=== PATIENT | female | born 1940 | race Caucasian/White ===

== ENCOUNTER → 2017-07-09 | Outpatient (CLI) | payer MEDICARE ==
[~2017-07-09] MED LIST: ADULT LOW DOSE81 MG PO; AFRIN120 MG PO; ANTARA130 MG PO; ANTARA43 MG PO; ANTIVERT25 MG PO; ASPIRIN325 PO; ATORVASTATIN CA40 MG PO; CARDIZEM CD120 MG PO; CELEXA 20 MG TA20 MG PO; COUMADIN 5 MG TA5 M1 PO; CRESTOR10 MG PO; DECONGESTANT NA15 ML NS; DETROL LA2 MG PO; DIAZEPAM 2MG TAB2 MG PO; DIOVAN HCT 1601 EACH PO; ELIQUIS2.5 MG PO; ESCITALOPRAM OX20 MG PO; FENOFIBRIC ACI135 MG PO; GLIPIZIDE ER5 MG PO; LEXAPRO; LOSARTAN POTASS25 MG PO; MECLIZINE 25 MG25 M1 PO; MELATONIN3 M3 PO; METAMUCIL1 EAC1 PO; NORCO 5-325 TA1 EACH PO; OMEPRAZOLE40 MG PO; OXYBUTYNIN ER 55 M1 PO; PROPAFENONE HC300 MG PO; RYTHMOL SR325 MG PO; RYTHMOL225 MG PO; SEE COMMENTS; See comments; TRANSDERM-SCO1 PATC1 TRANSDERM; VITAMIN D2000 UNIT PO; ZETIA10 MG PO; ZPAK PO; [UNRECOGNIZED DRUG - REMARK]
== END ==
LOC: M.CT 07:57
DX: K76.0 Fatty (change of) liver, not elsewhere classified (principal); N83.8 Other noninflammatory disorders of ovary, fallopian tube and broad ligament

== ENCOUNTER 2017-08-09 08:00 | Outpatient (CLI) | payer MEDICARE ==
[~2017-08-09] VITALS: Ht 157.5 cm; Wt 68.0 kg
[~2017-08-09 08:00] MED LIST changes: -ELIQUIS2.5 MG PO; -METAMUCIL1 EAC1 PO; -NORCO 5-325 TA1 EACH PO
[2017-08-09 09:25] LABS: ABSOLUTE EOSINOPHILS 0.1 thou/uL (0.0-0.7); ABSOLUTE LYMPHOCYTES 1.6 thou/uL (0.8-5.3); ABSOLUTE MONOCYTES 0.3 thou/uL (0.0-1.2); ABSOLUTE NEUTROPHILS 2.8 thou/uL (1.6-8.1); BASOPHILS 0.9 %; HEMATOCRIT 42.2 % (37.0-47.0); HEMOGLOBIN 14.5 gm/dL (12.0-15.0); LYMPHOCYTES 32.5 %; MCHC 34.4 g/dL (28.0-37.0); MCV 93.1 fL (80.0-100.0); MONOCYTES 6.6 %; NUCLEATED RBCS 0 /100WBC; PLATELET COUNT* 228 thou/uL (150-400); RBC 4.53 mil/uL (4.20-5.00); RDW-CV 13.7 % (10.5-14.5); WBC 4.8 thou/uL (4.0-11.0)
[2017-08-09 09:35] LABS: APTT 26.4 Seconds (25.0-31.3); INR 1.1; PROTIME 10.6 Seconds (9.20-11.50)
--- NOTE | 2017-08-09 09:36 | EKG ---
[place] [address] ELECTROCARDIOGRAM REPORT Name: YNES MELGOZA Room: PRE IN 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
[2017-08-09 10:06] LABS: ALBUMIN 3.8 g/dL (3.4-5.0); CALCIUM 9.4 mg/dL (8.5-10.1); CREATININE 1.1 mg/dL (0.6-1.3); POTASSIUM 4.2 mmol/L (3.5-5.1); TOTAL BILIRUBIN 0.6 mg/dL (<0.1-1.0); TOTAL PROTEIN 6.9 g/dL (6.4-8.2)
[2017-08-09 10:39] LABS: ESR (SEDRATE) 2 mm/hr (0-30)
[2017-08-10 04:11] LABS: GLYCOHEMOGLOBIN (HGB A1C) 6.1 % (4.8-5.6)
== END 2017-08-15 11:07 | disposition home or self-care (01) ==
LOC: M.LAB 08:00 → M.PRE 08-20 06:56 → EDSTATUS 08-20 08:06 → M.PRE 08-20 08:55
PROVIDERS: Orthopaedic Surgery
DX: M16.11 Unilateral primary osteoarthritis, right hip (principal)

== ENCOUNTER → 2017-09-05 | Outpatient (CLI) | payer MEDICARE ==
[~2017-09-05] MED LIST changes: +ELIQUIS2.5 MG PO; +METAMUCIL1 EAC1 PO; +NORCO 5-325 TA1 EACH PO
--- NOTE | 2017-09-05 13:30 | 2DMMODE ---
[place] [address] 2 D/M-MODE ECHOCARDIOGRAM Name: YNES MELGOZA Room: [facility]#: [id number] Admission: 09/05/17 Attend Phys: Keily Marshall, Discharge: Date of : 42 Date of Service: 09/05/17 1330 Report #: [id number] THIS REPORT FOR: //name// APPROVED REPORT Study performed: 09/05/2017 08:08:19 EXAM: Comprehensive 2D, Doppler, and color-flow Echocardiogram Patient Location: Out-Patient Status: routine BSA: 1.68 HR: 66 bpm BP: 132/80 mmHg Other Information Study Quality: Good Indications Pre-Op Atrial Fibrillation 2D Dimensions LVEF(%): 78.07 (>50%) IVSd: 11.47 (7-11mm) LVOT Diam: 20.02 (18-24mm) LVDd: 33.34 mm PWd: 10.30 (7-11mm) Ascending Ao: 29.55 (22-36mm) LVDs: 18.14 (25-40mm) Aortic Root: 28.65 mm Pike's LVEF: 78.07 % Volumes Left Atrial Volume (Systole) LA ESV Index: 17.70 mL/m2 Aortic Valve AoV Peak Juvencio.: 0.95 m/s AO Peak Gr.: 3.59 mmHg LVOT Max P.92 mmHg AO Mean Gr.: 1.78 mmHg LVOT Mean P.27 mmHg LVOT Max V: 0.85 m/s AO V2 VTI: 19.29 cm LVOT Mean V: 0.51 m/s ABDULLAHI (VTI): 2.95 cm2 LVOT V1 VTI: 18.09 cm Mitral Valve E/A Ratio: 0.93 [place] [address] 2 D/M-MODE ECHOCARDIOGRAM Name: YNES MELGOZA Room: [facility]#: [id number] Admission: 09/05/17 Attend Phys: Keily Marshall, Discharge: Date of : 42 Date of Service: 09/05/17 1330 Report #: [id number] MV Decel. Time: 192.69 ms MV E Max Juvencio.: 0.60 m/s MV PHT: 55.88 ms MVA (PHT): 3.94 cm2 TDI E/Lateral E': 5.00 E/Medial E': 5.45 Medial E' Juvencio.: 0.11 m/s Lateral E' Juvencio.: 0.12 m/s Pulmonary Valve PV Peak Juvencio.: 0.81 m/s PV Peak Gr.: 2.62 mmHg Tricuspid Valve TR Peak Gr.: 19.07 mmHg RVSP: 24.07 mmHg Left Ventricle The left ventricle is normal size. There is normal LV segmental wall motion. There is normal left ventricular wall thickness. Left ventricular systolic function is normal. The left ventricular ejection fraction is within the normal range. LVEF is 55-60%. The left ventricular diastolic function is normal. Right Ventricle The right ventricle is normal size. The right ventricular systolic function is normal. Atria The left atrium size is normal. The right atrium size is normal. Aortic Valve The aortic valve is normal in structure. No aortic regurgitation is present. There is no aortic valvular stenosis. Mitral Valve The mitral valve is normal in structure. Mild mitral regurgitation. No evidence of mitral valve stenosis. Tricuspid Valve The tricuspid valve is normal in structure. Mild tricuspid regurgitation. The RVSP is __24.1 mmHg. Pulmonic Valve The pulmonary valve is normal in structure. [place] [address] 2 D/M-MODE ECHOCARDIOGRAM Name: YNES MELGOZA Room: [facility]#: [id number] Admission: 09/05/17 Attend Phys: Keily Marshall, Discharge: Date of : 42 Date of Service: 09/05/17 1330 Report #: [id number] Great Vessels The aortic root is normal in size. IVC is normal in size and collapses with >50% inspiration Pericardium There is no pericardial effusion. <Conclusion> The left ventricle is normal size. There is normal left ventricular wall thickness. Left ventricular systolic function is normal. The left ventricular ejection fraction is within the normal range. LVEF is 55-60%. The left ventricular diastolic function is normal. The right ventricle is normal size. The left atrium size is normal. The aortic valve is normal in structure. The mitral valve is normal in structure. Mild mitral regurgitation. The tricuspid valve is normal in structure. Mild tricuspid regurgitation. The RVSP is __24.1 mmHg. IVC is normal in size and collapses with >50% inspiration There is no pericardial effusion. There is normal LV segmental wall motion. <ELECTRONICALLY SIGNED> By: Reji Jones MD, FACC 09/05/17 133 29 29 Reji Jones MD, FACC /INF
--- NOTE | 2017-09-05 17:58 | CARDNUC ---
[place] [address] CARDIAC NUCLEAR IMAGING REPORT Name: YNES MELGOZA Room: [facility]#: [id number] Admission: 09/05/17 Attend Phys: Keily Marshall, Discharge: Date of : 42 Date of Service: 09/05/17 1758 Report #: [id number] THIS REPORT FOR: //name// APPROVED REPORT Study performed: 09/05/2017 08:30:00 Exam: Nuclear Stress Test Indication: Atrial Fibrillation, pre-op clearance Patient Location: Out-Patient Stress Tech: Alla Bradshaw Stress Nurse: Laura Rosales RN Ht: 5 ft 3 in Wt: 150 lbs BSA: 1.71 m2 BMI: 26.56 Medical History Medical History: Atrial Fibrillation, Diabetes, HTN, Hyperlipidemia Medications: propafenone, fenofibrate, losartan, asa Allergies: hydrocodone Cardiac Risk Factors: Age, DM, HTN, Hyperlipidemia Exercise History: Sedentary Stress Test Details Stress Test: Pharmacologic stress testing performed using 0.4 mg of regadenoson per 5 mL given IV over 10 seconds. Reason for pharmacologic stress test: physical limitation. HR Resting HR: 68 bpm Max Heart Rate (APMHR): 144 bpm Max HR Achieved: 88 bpm Target HR (85% APMHR): 122 bpm % of APMHR: 61 Recovery HR: 77 bpm BP Resting BP: 157/88 mmHg Max BP: 161/82 mmHg ECG Resting ECG: Sinus Rhythm Stress ECG: Sinus Rhythm ST Change: None Arrhythmia: None Recovery ECG: [place] [address] CARDIAC NUCLEAR IMAGING REPORT Name: YNES MELGOZA Room: [facility]#: [id number] Admission: 09/05/17 Attend Phys: Keily Marshall, Discharge: Date of : 42 Date of Service: 09/05/17 1758 Report #: [id number] Change: None Recovery Arrhythmia: None Clinical Reason for Termination: Completed protocol Stress Symptoms: None Exercise duration: 0 min sec Exercise capacity: 1.0 METs The patient had no significant symptoms with Lexiscan infusion. Stress ECG Conclusion The baseline 12-lead electrocardiogram showed sinus rhythm without significant ST or T wave abnormality. EKGs obtained during and post Lexiscan infusion show no significant ST or T wave changes when compared baseline. There were no significant stress-induced arrhythmias. NM EXAM: Myocardial Perfusion REST/STRESS Imaging Protocol: Rest Tc-99m/Stress Tc-99m 1 day Resting Data Rest SPECT myocardial perfusion imaging was performed in supine position 30 minutes following the intravenous injection of 11.7 mCi of Tc-99m Sestamibi. Time of rest injection: 0850 The images were gated to evaluate regional wall motion and calculate left ventricular ejection fraction. Administration Route: IV Administration Site: Left AC Pharmacologic Stress Pharmacologic stress test was performed by injecting Regadenoson 0.4 mg IV push followed by the intravenous injection of 34.5 mCi of Tc-99m Sestamibi. Time of stress injection: 1015 Administration Route: IV Administration Site: Left AC Gated Stress SPECT was performed 40 minutes after stress injection. The images were gated to evaluate regional wall motion and calculate left ventricular ejection fraction. Prone imaging was performed. Study Quality Study: [place] [address] CARDIAC NUCLEAR IMAGING REPORT Name: YNES MELGOZA Room: [facility]#: [id number] Admission: 09/05/17 Attend Phys: Keily Marshall, Discharge: Date of : 42 Date of Service: 09/05/17 1758 Report #: [id number] Artifact: Mild Breast artifact Study Data At rest, the left ventricular ejection fraction was 67%.. Post stress, the left ventricular ejection was 61%.. TID = 1.06. Perfusion Myocardial perfusion images at rest and stress show mild photopenia in the mid to distal anterior wall consistent with breast attenuation artifact. No other significant defects are identified. Wall Motion Normal left ventricular wall motion. Nuclear Conclusion ECG Findings: negative for ischemia Clinical Findings: negative for ischemia Nuclear Findings: negative for ischemia Exercise Capacity: not assessed Left Ventricular Function: normal Risk Study: low Myocardial perfusion images show no defect to suggest infarct or ischemia. Left ventricular systolic function appears normal on gated studies. This is a low risk study. <Conclusion> The baseline 12-lead electrocardiogram showed sinus rhythm without significant ST or T wave abnormality. EKGs obtained during and post Lexiscan infusion show no significant ST or T wave changes when compared baseline. There were no significant stress-induced arrhythmias. <ELECTRONICALLY SIGNED> By: Horacio Wills MD, [facility] 09/05/171757 57 57 Horacio Wills MD, FACC /INF
== END ==
LOC: M.CRD 08-16 10:04
DX: Z01.818 Encounter for other preprocedural examination (principal); I08.1 Rheumatic disorders of both mitral and tricuspid valves; I48.2 Chronic atrial fibrillation; E11.9 Type 2 diabetes mellitus without complications; I10 Essential (primary) hypertension

== ENCOUNTER 2017-11-12 07:59 | Inpatient (IN) | payer MEDICARE ==
[2017-11-01 09:53] LABS: ABSOLUTE BASOPHILS 0.1 thou/uL (0.0-0.2); ABSOLUTE EOSINOPHILS 0.2 thou/uL (0.0-0.7); ABSOLUTE LYMPHOCYTES 1.5 thou/uL (0.8-5.3); ABSOLUTE MONOCYTES 0.3 thou/uL (0.0-1.2); ABSOLUTE NEUTROPHILS 2.4 thou/uL (1.6-8.1); BASOPHILS 1.2 %; EOSINOPHILS 4.5 %; HEMOGLOBIN 14.4 gm/dL (12.0-15.0); LYMPHOCYTES 33.5 %; MCHC 34.2 g/dL (28.0-37.0); MCV 93.6 fL (80.0-100.0); MONOCYTES 6.8 %; MPV 9.2 fl. (7.2-11.1); NUCLEATED RBCS 0 /100WBC; PLATELET COUNT* 240 thou/uL (150-400); RBC 4.49 mil/uL (4.20-5.00); RDW-CV 13.3 % (10.5-14.5); WBC 4.4 thou/uL (4.0-11.0)
[2017-11-01 10:04] LABS: APTT 26.4 Seconds (25.0-31.3); INR 1.1; PROTIME 10.3 Seconds (9.20-11.50)
[2017-11-01 10:24] LABS: CALCIUM 9.6 mg/dL (8.5-10.1); CREATININE 0.9 mg/dL (0.6-1.3); POTASSIUM 4.4 mmol/L (3.5-5.1); TOTAL BILIRUBIN 0.5 mg/dL (<0.1-1.0)
[2017-11-01 11:23] LABS: ESR (SEDRATE) 10 mm/hr (0-30)
[~2017-11-12] VITALS: Ht 157.5 cm; Wt 68.0 kg
[~2017-11-12 07:59] MED LIST changes: -ELIQUIS2.5 MG PO; -METAMUCIL1 EAC1 PO; -NORCO 5-325 TA1 EACH PO
[2017-11-12 13:07] VITALS: BP 121/75
[2017-11-12 17:55] VITALS: BP 118/55
[2017-11-12 21:45] VITALS: BP 110/52
[2017-11-12 23:51] VITALS: BP 97/44
[2017-11-13 03:50] VITALS: BP 120/56
[2017-11-13 04:06] LABS: HEMATOCRIT 34.5 % (37.0-47.0); HEMOGLOBIN 11.6 gm/dL (12.0-15.0)
[2017-11-13 08:15] VITALS: BP 118/76
[2017-11-13 17:01] VITALS: BP 107/52
[2017-11-13 19:45] VITALS: BP 97/49
[2017-11-14] VITALS: BP 103/43
[2017-11-14 03:52] VITALS: BP 119/49
[2017-11-14 04:34] LABS: HEMATOCRIT 34.6 % (37.0-47.0); HEMOGLOBIN 11.6 gm/dL (12.0-15.0)
[2017-11-14 09:04] VITALS: BP 124/62
[2017-11-14] MEDS ORDERED: ELIQUIS2.5 MG PO (09:31)
[2017-11-14] MEDS ORDERED: METAMUCIL1 EAC1 PO (09:36)
[2017-11-14 09:37] VITALS: BP 124/62
[2017-11-14] MEDS ORDERED: NORCO 5-325 TA1 EACH PO (10:58)
--- NOTE | 2017-11-14 11:58 | OP ---
[address] [address] OPERATIVE REPORT Name: YNES MELGOZA Room: [address] IN .R.#: [id number] Admission: 11/12/17 Attend Phys: Kimmie Sheriff Discharge: Date of : 42 Report #: [id number] THIS REPORT FOR: //name// CC: Justyna Sanchez DICTATED BY: Presley Oneil DO DATE OF SERVICE: 11/12/2017 PREOPERATIVE DIAGNOSIS: Right hip degenerative joint disease. POSTOPERATIVE DIAGNOSIS: Right hip degenerative joint disease. PROCEDURE: Right total hip arthroplasty with anterior supine intermuscular approach utilizing Biomet total hip system with the following components: 1. G7 finned acetabular shell 50 mm in diameter. 2. G7 high wall acetabular liner, 36 mm ArCom. 3. A size 5 high offset micro Taperloc femoral stem. 3. A 36-mm ceramic head with a -3 mm neck. 4. Two 6.5 mm diameter acetabular screws, ____, 25 mm in length. SURGEON: Harpreet Bains DO LEAD SPRINKLER: Presley Oneil DO and Anu Bains DO. ANESTHESIA: General. ESTIMATED BLOOD LOSS: 875 mL with 325 mL returned via Cell Saver. ANTIBIOTICS: 2 grams Ancef IV preoperatively. SPECIMENS: None. DRAINS: None. COMPLICATIONS: None. DISPOSITION: Stable to PACU and will be admitted to the hospital for standard postoperative care. INDICATIONS FOR PROCEDURE: The patient is a pleasant 77-year-old female who was seen in [facility]opedic [facility] with complaints of a right hip pain. On radiograph, she was found to have advanced degenerative joint disease changes to her right hip. Pain had progressively worsened over the last 6 [place] [address] OPERATIVE REPORT Name: YNES MELGOZA Room: [address] IN [facility].#: [id number] Admission: 11/12/17 Attend Phys: Kimmie Sheriff Discharge: Date of : 42 Report #: [id number] it is greatly impacting her quality of life preventing her from performing activities that she wishes to. The pain was refractory to conservative measures consisting of oral anti-inflammatories, home activity modifications, home physical therapy exercises for much greater than 6 months' duration. Therefore, the patient was recommended for a right total hip arthroplasty with ASI. Risks, benefits, complications, indications and alternatives were discussed and the patient wished to proceed with surgery today. DESCRIPTION OF PROCEDURE: The patient was seen in preoperative holding area. Correct operative site, right hip was initialed. The patient was taken back to the operating suite, placed in supine position on the operating table, given benefit of general anesthetic. The patient was placed on a traction table with well-padded boots placed to the bilateral feet. Right hip and lower extremity was prepped and draped in typical fashion. Surgery began at the time identifying correct patient, correct procedure, correct operative site, preoperative antibiotics and correct performing surgeon. Next, a standard anterior surgical incision was performed starting roughly 2 fingerbreadths distal and 2 fingerbreadths lateral to the ASIS extending roughly 30 degrees lateral. Incision was roughly 7-8 cm in length. Skin was incised with a 10 blade scalpel. Subcutaneous tissues were incised sharply with 10 blade scalpel until the fascia overlying the tensor fascia salud muscle belly was encountered. This fascia was then incised in line with the incision, both lateral and medial flaps were developed until the interval was bluntly dissected with finger dissection between the sartorius and tensor. Blunt dissection was used to feel the superior and both inferior aspects of the neck. Dissection was performed utilizing tissue dissector scissors to identify ascending branch of the lateral circumflex artery, which was then ligated and cauterized using the [employer] cautery. Indirect head of the rectus was reflected off the anterior capsule using a combination of electrocautery as well as a Pierre elevator. A #9 retractor was then placed in line with the femoral neck over the anterior lip of the anterior column of acetabulum and the 6 and 7 retractors were placed in the superior and inferior aspects of the neck. Next, a capsulectomy was performed in a normal fashion using electrocautery. Neck cut was performed in the normal fashion roughly 1 fingerbreadth above the lesser and in line with the saddle portion of the junction of the superior neck and greater trochanter. Femoral neck and the head were removed using bone tenaculums. Labrum and surrounding soft tissue were removed from the acetabular rim using electrocautery after placing appropriate retractors in the normal fashion. Next, a size 49-mm acetabular reamer was positioned and acetabular reaming was performed under C-arm guidance down to nearly table. Impaction of the final acetabular shell, size 50-mm shell was then carried out with the appropriate anteversion and obliquity. Corresponding acetabular shell screws were then drilled and placed in normal fashion followed by insertion of the acetabular liner, which was impacted into place. Next, the hip was extended and abducted and externally rotated and a typical inferior medial capsule release as [place] [address] OPERATIVE REPORT Name: YNES MELGOZA Room: [address]#: [id number] Admission: 11/12/17 Attend Phys: Kimmie Sheriff Discharge: Date of : 42 Report #: [id number] fossa release was performed using electrocautery. We had great visualization of the proximal end of the femur. We started to prepare the femur with a box osteotome followed by the canal finder, followed by sequential broaching until the appropriate fitting femoral broach was obtained. A trial head and neck were then inserted at this time consisting of a -3 neck, which the hip was reduced, felt to be rather stable in all planes. [place]rington to have rather symmetric leg lengths under radiographs. Next, trial components consisting of the stem, head and neck were removed. A final stem was then impacted into place followed by impaction of the final ceramic head. Hip was reduced, again taken through range of motion and felt to be stable in all planes. Final radiographs were obtained. Wound was thoroughly irrigated. Fascia was closed with a #1 Quill suture followed by subcutaneous tissue closed with 2-0 Monocryl suture and a subcuticular running 3-0 Stratafix suture was performed, Dermabond skin glue on the skin followed by standard dressings consisting of a Mepilex. The patient was weaned from general anesthetic, transferred in stable condition to PACU. All sponge and needle counts were correct times 2. <ELECTRONICALLY SIGNED> By: Milton Dunn DO 11/14/17 1158 1520 174DO earl Simon
== END 2017-11-14 14:24 | disposition home health service (06) | DRG 470 ==
LOC: M.PRE 07:59 → M.TBA 10:35 → M.ORTHSURG 10:35 → M.PRE 14:46 → M.ORTHSURG 16:36
PROVIDERS: Orthopaedic Surgery; ADMIT Internal Medicine
PROC: 0SR904Z Replacement of Right Hip Joint with Ceramic on Polyethylene Synthetic Substitute, Open Approach (ICD-10-PCS; principal; 2017-11-12)
DX: M16.11 Unilateral primary osteoarthritis, right hip (principal); E11.9 Type 2 diabetes mellitus without complications; E78.00 Pure hypercholesterolemia, unspecified; M19.90 Unspecified osteoarthritis, unspecified site; K21.9 Gastro-esophageal reflux disease without esophagitis; F41.9 Anxiety disorder, unspecified; F32.9 Major depressive disorder, single episode, unspecified; I10 Essential (primary) hypertension; Z96.1 Presence of intraocular lens; Z88.6 Allergy status to analgesic agent; Z79.899 Other long term (current) drug therapy; Z90.11 Acquired absence of right breast and nipple; Z98.42 Cataract extraction status, left eye; Z98.41 Cataract extraction status, right eye

== ENCOUNTER → 2018-01-31 | Outpatient (CLI) | payer MEDICARE ==
[~2018-01-31] MED LIST changes: +ELIQUIS2.5 MG PO; +METAMUCIL1 EAC1 PO; +NORCO 5-325 TA1 EACH PO
== END ==
LOC: M.ULTRA 14:24
DX: E04.2 Nontoxic multinodular goiter (principal); I10 Essential (primary) hypertension; E11.9 Type 2 diabetes mellitus without complications; E78.5 Hyperlipidemia, unspecified; M19.90 Unspecified osteoarthritis, unspecified site; Z86.39 Personal history of other endocrine, nutritional and metabolic disease